=== PATIENT | female | born 1990 | race Caucasian/White ===

== ENCOUNTER 2019-06-04 05:24 | Day surgery (SDC) | payer OTHER ==
[2019-06-04] MEDS ORDERED: CEFAZOLIN 2 GM/50 ML (PMX) 50 ML IVPB (06:00)
[2019-06-04] MEDS: SOD CHLORIDE 0.9% 1,000 ML IV (06:15)
[2019-06-04] MEDS ORDERED: MIDAZOLAM 1 MG/ML 2 ML INJ (07:31)
[2019-06-04] MEDS ORDERED: LIDOCAINE 2% (SDV) 5 ML INJ (07:31)
[2019-06-04] MEDS ORDERED: PROPOFOL 20 ML (07:31)
[2019-06-04] MEDS ORDERED: FENTAnyl 50 MCG/ML VIAL (07:32)
[2019-06-04] MEDS ORDERED: HYDROmorphONE 1 MG/5 ML IV SYRINGE IV ×3 (08:00)
[2019-06-04] MEDS ORDERED: FENTAnyl 50 MCG/ML VIAL IV (08:00)
[2019-06-04] MEDS ORDERED: DIPHENHYDRAMINE 50 MG INJ IV (08:00)
[2019-06-04] MEDS ORDERED: PROCHLORPERAZINE 10 MG INJ IV (08:00)
[2019-06-04] MEDS ORDERED: MEPERIDINE 25 MG INJ IV (08:00)
[2019-06-04] MEDS ORDERED: OXYCODONE/ACETAMINOPHEN (5/325) TAB PO (08:00)
[2019-06-04] MEDS ORDERED: ONDANSETRON 4 MG INJ IV (08:00)
[2019-06-04] MEDS ORDERED: ONDANSETRON 4 MG INJ (08:06)
[2019-06-04] MEDS ORDERED: DEXAMETHASONE 4 MG/ML 5 ML INJ (08:06)
[2019-06-04] MEDS: BUPIVACAINE 0.25% (MPF) 30 ML INJ (08:34)
[2019-06-04] MEDS ORDERED: NEOMYC/POLYMYX/BACIT 30 GM OINT (08:45)
[2019-06-04] MEDS ORDERED: HYDROCODONE/APAP (5/325) TAB PO (09:00)
[2019-06-04] MEDS ORDERED: CEFAZOLIN 1 GM INJ (09:54)
== END 2019-06-04 11:39 | disposition home or self-care (01) ==
LOC: SDS 05:24
DX: L72.11 Pilar cyst (principal)
CPT/HCPCS: 14021; 88307

== ENCOUNTER 2019-07-26 11:02 | Day surgery (SDC) | payer OTHER ==
[~2019-07-26 11:02] MED LIST: CEFAZOLIN 1 GM/50 ML (PMX) 50 ML IVPB; SOD CHLORIDE 0.9% 1,000 ML IV
[2019-07-26] MEDS ORDERED: BUPIVACAINE 0.25% (MPF) 30 ML INJ (12:42)
[2019-07-26] MEDS ORDERED: LIDOCAINE 2% (MDV) 20 ML INJ (12:51)
[2019-07-26] MEDS ORDERED: TRIMETHOBENZAMIDE 100 MG/ML VIAL IM (13:00)
[2019-07-26] MEDS ORDERED: MEPERIDINE 25 MG INJ IV (13:00)
[2019-07-26] MEDS ORDERED: hydrALAzine 20 MG INJ IV (13:00)
[2019-07-26] MEDS ORDERED: LABETALOL HCL 20MG INJ IV (13:00)
[2019-07-26] MEDS ORDERED: FENTAnyl 50 MCG/ML VIAL IV ×2 (13:00)
[2019-07-26] MEDS ORDERED: EPHEDrine 25 MG/5 ML SYG IV (13:00)
[2019-07-26] MEDS ORDERED: ONDANSETRON 4 MG INJ IV (13:00)
[2019-07-26] MEDS ORDERED: MIDAZOLAM 1 MG/ML 2 ML INJ IV (13:00)
[2019-07-26] MEDS ORDERED: IPRATROPIUM (NEB) 0.5 MG/2.5 ML AMP HHN (13:00)
[2019-07-26] MEDS ORDERED: ALBUTEROL 0.083% (NEB) 2.5 MG/3 ML AMP HHN (13:00)
[2019-07-26] MEDS ORDERED: OXYCODONE/ACETAMINOPHEN (5/325) TAB PO ×2 (13:00)
[2019-07-26] MEDS ORDERED: HYDROmorphONE 1 MG/5 ML IV SYRINGE IV ×2 (13:00)
[2019-07-26] MEDS ORDERED: DIPHENHYDRAMINE 50 MG INJ IV (13:00)
[2019-07-26] MEDS ORDERED: PROPOFOL 20 ML (13:04)
[2019-07-26] MEDS ORDERED: CEFAZOLIN 1 GM INJ (13:04)
[2019-07-26] MEDS ORDERED: GLYCOPYRROLATE 0.4 MG INJ (13:04)
[2019-07-26] MEDS ORDERED: ROCURONIUM 50 MG INJ (13:04)
[2019-07-26] MEDS ORDERED: NEOSTIGMINE 3 MG/3 ML SYRINGE (13:04)
[2019-07-26] MEDS ORDERED: MIDAZOLAM 1 MG/ML 2 ML INJ (13:05)
[2019-07-26] MEDS ORDERED: FENTAnyl 50 MCG/ML VIAL (13:05)
[2019-07-26] MEDS ORDERED: ONDANSETRON 4 MG INJ (13:05)
[2019-07-26] MEDS ORDERED: DEXAMETHASONE 4 MG/ML 5 ML INJ (13:05)
[2019-07-26] MEDS: BUPIVACAINE 0.5% (SDV) 30 ML INJ (13:58)
[2019-07-26] MEDS ORDERED: HYDROCODONE/APAP (5/325) TAB PO (14:30)
[2019-07-26] MEDS: HYDROmorphONE 1 MG/5 ML IV SYRINGE IV (14:41)
[2019-07-26] MEDS: FENTAnyl 50 MCG/ML VIAL IV (14:42)
[2019-07-26] MEDS: NEOMYC/POLYMYX/BACIT 30 GM OINT (14:52)
== END 2019-07-26 16:35 | disposition home or self-care (01) ==
LOC: SDS 11:02
DX: L72.11 Pilar cyst (principal)
CPT/HCPCS: 14021; 84703; 88307